=== PATIENT | female | born 1970 | race American Indian/Alaskan Native ===

== ENCOUNTER 2016-08-25 09:32 | Outpatient (CLI) | payer OTHER ==
--- NOTE | 2016-08-25 11:40 | XRay Report ---
BILATERAL KNEES, 2 VIEWS: HISTORY: Bilateral knee pain. FINDINGS: No comparison. There is normal bone mineralization. Minimal osteoarthritic changes are noted in the medial compartments of both knees. There is also minimal retropatellar spurring within the left knee. No evidence for fracture, osteochondral defect or large joint effusion. The soft tissues are edematous. IMPRESSION: Mild osteoarthritic changes.
== END 2016-08-25 09:33 | disposition home or self-care (01) ==
LOC: XRAY 09:32
PROVIDERS: ATTEND Internal Medicine
DX: I89.0 Lymphedema, not elsewhere classified (principal); E66.9 Obesity, unspecified